=== PATIENT | male | born 1950 | race Caucasian/White ===

== ENCOUNTER 2018-03-10 04:45 | Emergency (ER) | payer OTHER, MEDICARE ==
--- NOTE | 2018-03-10 05:03 | EDPHY ---
H & P Stated Complaint: unable to sleep stress test today Time Seen by Provider: 03/10/18 05:03 HPI/ROS: HPI CHIEF COMPLAINT: Unable to sleep. HISTORY OF PRESENT ILLNESS: 67-year-old male, recently diagnosed with AFib, and due to have a stress test today with [facility] presents to the emergency room stating that he has not been able to sleep for the past 3-4 days as he has been feeling stressed. He also states he is being evaluated for obstructive sleep apnea. He states for the last 3 nights he has been able to sleep but sometimes wakes up feeling stressed. Denies chest pain or chest pressure denies shortness of breath. Tonight he states he did not get much sleep as he has been feeling anxious as he has a stress test coming up. He arrives to the emergency room for evaluation. Here in the emergency room he denies any chest pain or chest pressure or shortness of breath or feeling ill. He states he has had some anxiety and stress about his upcoming stress test. He is unsure what to do about this. States he often wakes up thinking about it. Patient denies any dyspnea on exertion, PND denies chest pain or shortness of breath, denies peripheral edema. Patient is due for a stress test at 10:00 a.m. This morning with [facility]. We had a long discussion at bedside and after extensive discussion the patient does not want to proceed with any further workup in the emergency room he denies chest pain or shortness of breath denies feeling his heart beating fast, denies palpitations. Past Medical History: New diagnosis of AFib on Eliquis. Past Surgical History: No recent surgery however history hip surgery Social History: Denies drugs alcohol tobacco. Family History: Noncontributory ROS REVIEW OF SYSTEMS: 10 Systems were reviewed and negative with the exception of the elements mentioned in the history of present illness. Exam Constitutional appears well nontoxic no acute distress triage nursing summary reviewed, vital signs reviewed, awake/alert. Eyes normal conjunctivae and sclera, EOMI, PERRLA. HENT normal inspection, atraumatic, moist mucus membranes, no epistaxis, neck supple/ no meningismus, no raccoon eyes. Respiratory clear to auscultation bilaterally, normal breath sounds, no respiratory distress, no wheezing. Cardiovascular rate normal, regular rhythm, no murmur, no edema, distal pulses normal. Gastrointestinal soft, non-tender, no rebound, no guarding, normal bowel sounds, no distension, no pulsatile mass. Genitourinary no CVA tenderness. Musculoskeletal no significant peripheral edema. no midline vertebral tenderness, full range of motion, no calf swelling, no tenderness of extremities , no meningismus, good pulses, neurovascularly intact. Skin pink, warm, & dry, no rash, skin atraumatic. Neurologic awake, alert and oriented x 3, AAOx3, moves all 4 extremities equally, motor intact, sensory intact, CN II-XII intact, normal cerebellar, normal vision, normal speech. Psychiatric anxiety and stress Heme/Lymph/Immune no lymphadenopathy. Differential Diagnosis: Includes but is not limited to in a particular order acute anxiety, stress response, panic attack, obstructive sleep apnea, AFib Medical Decision Making: Here in emergency room after long discussion with the patient he has declined medical evaluation here, declines chest x-ray EKG or blood work. I will consult pulmonology about his symptoms of nighttime dyspnea sometimes waking up feeling short of breath. See if they have any further recommendations Re-evaluation: 0619: Patient resting comfortably here no complaints denies chest pain or shortness of breath. I did speak with pulmonology Dr. Montes, discussed his case about at times having waking up gasping for air. The patient is currently getting evaluation for obstructive sleep apnea. Dr. Montes recommend the patient sleep sitting up, also has significant anxiety component. Is okay with him taking Xanax. I discussed this at length with the patient. He is comfortable this plan is plan is to get his stress test today at 10:00 a.m. With Cardiology. I additionally discussed with him if he has chest pain, shortness of breath, trouble breathing, he needs return to the emergency room is comfortable this plan. Is comfortable discharge. Vital signs stable. 6:31 a.m., heart rate 82, pulse ox 97% on room air. EKG interpretation by me on record in [email or web address] system. Impression time of EKG 6:44 a.m. AFib rate of 78, left anterior fascicular block without any signs of acute ischemia. 0757: I discussed the case with Dr. De La Cruz, went over this in detail. Plan for stress test today outpatient. Will follow up with him. Would like him to get his stress test today. Discussed return precautions with the patient comfortable with this plan Discussed with patient and at bedside about further evaluation with sleep study and CPAP. Patient is comfortable being discharged. Comfortable following up with Cardiology today. is comfortable this. Return precautions discussed. I also gave the patient the option to stay in the hospital to be further treated for his anxiety, and evaluated for waking up from sleep. However he has declined this. He wants to get his stress test today first at 10am, and then if need be he states he will come back. Source: Patient - Personal History Current Tetanus/Diphtheria Vaccine: Unsure Current Tetanus Diphtheria and Acellular Pertussis (TDAP): Unsure - Medical/Surgical History Hx Asthma: No Hx Chronic Respiratory Disease: No Hx Diabetes: No Hx Cardiac Disease: No Hx Renal Disease: No Hx Cirrhosis: No Hx Alcoholism: No Hx Splenectomy or Spleen Trauma: No Other PMH: Home oxygen at night.Arthroscopic surgery on the knee 2007 and shoulder 2005.Hypothyroid. Novarel injection (HCG). kidney stones. l chandler 2012 - Social History Smoking Status: Never smoked Constitutional: Initial Vital Signs Temperature (C) 36.7 C 03/10/18 04:56 Heart Rate 75 03/10/18 04:56 Respiratory Rate 18 03/10/18 04:56 Blood Pressure 111/71 03/10/18 04:56 O2 Sat (%) 96 03/10/18 04:56 O2 Delivery Mode Room Air Allergies/Adverse Reactions: SEASONAL Allergy (Mild, Uncoded 07/03/13 12:50) SNEEZE, ITCHY EYES Home Medications: Medication Instructions Recorded Eliquis 03/10/18 Losartan Potassium 03/10/18 Metoprolol Succinate 03/10/18 Rythmol 150mg (*) 03/10/18 SIMVASTATIN 03/10/18 Departure - Departure Disposition: Home, Routine, Self-Care Clinical Impression: Anxiety, Dyspnea Condition: Good Instructions: Snoring (ED), Anxiety (ED) Additional Instructions: 1. Follow up with Cardiology today. 2. Return to the emergency room if you have worsening symptoms this includes shortness of breath, not doing well, chest pain, syncope Referrals: RENAE RODRIGUEZ [Other] - As per Instructions
[2018-03-10 06:56] VITALS: BP 122/77
--- NOTE | 2018-03-11 21:57 | CPEKG ---
Test Reason : OPEN Blood Pressure : / mmHG Vent. Rate : 078 BPM Atrial Rate : 000 BPM P-R Int : 112 ms QRS Dur : 091 ms QT Int : 374 ms P-R-T Axes : 028 -47 043 degrees QTc Int : 426 ms Atrial fibrillation Left anterior fascicular block Confirmed by Viral Payton ([id number]) on 03/11/2018 9:56:57 PM Referred By: Confirmed By:Viral Payton
== END 2018-03-10 07:50 | disposition home or self-care (01) ==
DX: R06.00 Dyspnea, unspecified (principal); F41.9 Anxiety disorder, unspecified; I48.91 Unspecified atrial fibrillation; Z79.01 Long term (current) use of anticoagulants

== ENCOUNTER → 2018-03-10 | Outpatient (CLI) | payer OTHER, MEDICARE | LOC: BHFA 10:00 | PROVIDERS: ATTEND Internal Medicine Cardiovascular Disease | DX: I48.91 Unspecified atrial fibrillation (principal) ==